=== PATIENT | male | born 1960 | race Caucasian/White ===

== ENCOUNTER → 2023-12-21 | Day surgery (SDC) | payer BC ==
[~2023-12-21] MED LIST: LIDOCAINE 1% INJ 10MG/ML (20 ML MDV) ONE; PROPOFOL 10 MG/ML 20 ML VIAL IV ONE; SODIUM CHLORIDE 0.9% 500 ML 500 ML IV SCH
[2023-12-21] MEDS: IV FLUID CONTINUATION 1,000 ML IV ONE ×2 (08:25→09:27)
[2023-12-21] MEDS: SODIUM CHLORIDE 0.9% 500 ML 500 ML IV SCH (08:30)
[2023-12-21 09:17] LABS: African American GFR (CKD) >90 (>60 ml/min/1.73 sqM); Anion Gap 4 mmol/L; Blood Urea Nitrogen 17 mg/dL (9-20); Calcium 8.4 mg/dL (8.4-10.2); Carbon Dioxide 24 mmol/L (22-30); Chloride 108 mmol/L (98-107); Digoxin <0.4 ng/mL; Glucose 102 mg/dL (74-99); Non-African American GFR(CKD) >90 (>60 ml/min/1.73 sqM); Potassium 4.1 mmol/L (3.5-5.1); Sodium 136 mmol/L (137-145)
[2023-12-21 10:41] VITALS: TEMP 98
[2023-12-21 11:29] VITALS: PULSE 66
[2023-12-21 11:31] VITALS: BP 124/74; RESP 18
--- NOTE | 2023-12-21 12:04 | P.DS ---
Providers Attending physician: Hector Peralta Primary care physician: [facility] Course: Cardioversion Report Performing physician Hector Peralta M.D. Procedure performed Successful cardioversion of atrial fibrillation to normal sinus mechanism using 120 J at first attempt Indication Symptomatic atrial fibrillation Complication None Level of sedation The procedure was performed under deep sedation using propofol with MACHINE CLIPPER in the room Procedure description After obtaining an informed consent the patient was brought to the recovery room. Sedation was introduced using propofol with MACHINE CLIPPER in the room. Subsequently the patient cardioverted from atrial fibrillation to normal sinus mechanism using 200 J and first attempt Conclusion Successful cardioversion of atrial fibrillation to normal sinus mechanism using 200 J Postprocedure management Continue the current medical regimen Continue oral anticoagulation Follow-up with the patient Plan - Discharge Summary Discharge Rx Participant: No New Discharge Prescriptions: Continue carvediloL [Coreg] 6.25 mg PO QAM Sacubitril/Valsartan [Entresto 49 mg-51 mg Tablet] 1 tab PO BID Isosorbide Mononitrate [Ismo] 10 mg PO QAM Apixaban [Eliquis] 5 mg PO QAM Fish Oil/Dha/Epa [Fish Oil 1,200 mg Fish Oil] 1 cap PO QAM Furosemide [Lasix] 40 mg PO DAILY PRN PRN Reason: Edema Digoxin [Lanoxin] 125 mg PO QAM Eplerenone 25 mg PO QAM Discharge Medication List Apixaban [Eliquis] 5 mg PO QAM 12/20/23 [History] Digoxin [Lanoxin] 125 mg PO QAM 12/20/23 [History] Eplerenone 25 mg PO QAM 12/20/23 [History] Fish Oil/Dha/Epa [Fish Oil 1,200 mg Fish Oil] 1 cap PO QAM 12/20/23 [History] Furosemide [Lasix] 40 mg PO DAILY PRN 12/20/23 [History] Isosorbide Mononitrate [Ismo] 10 mg PO QAM 12/20/23 [History] Sacubitril/Valsartan [Entresto 49 mg-51 mg Tablet] 1 tab PO BID 12/20/23 [History] carvediloL [Coreg] 6.25 mg PO QAM 12/20/23 [History] Follow up Appointment(s)/Referral(s): Hector Peralta MD [STAFF PHYSICIAN] - 1 Week Patient Instructions/Handouts: *Surgery [facility] - (Anesthesia) Discharge Instructions Outpatient Surgery, Moderate Sedation (DC), Fall Prevention (DC), Cardioversion (DC)
== END ==
LOC: OR 07:56
PROVIDERS: ATTEND Internal Medicine Interventional Cardiology
DX: I48.0 Paroxysmal atrial fibrillation (principal); I42.8 Other cardiomyopathies; I10 Essential (primary) hypertension; E78.5 Hyperlipidemia, unspecified; G47.33 Obstructive sleep apnea (adult) (pediatric); Z88.8 Allergy status to other drugs, medicaments and biological substances; Z79.01 Long term (current) use of anticoagulants; Z79.51 Long term (current) use of inhaled steroids; Z79.899 Other long term (current) drug therapy
CPT/HCPCS: 92960; 80048; 80162; J2001; J2704